=== PATIENT | male | born 1955 | race Caucasian/White ===

== ENCOUNTER 2017-05-10 09:50 | Emergency (ER) | payer OTHER ==
[~2017-05-10] VITALS: Ht 165.1 cm; Wt 95.3 kg
[2017-05-10 09:55] VITALS: TEMP 37; Ht 165.1 cm; Wt 95.3 kg
[2017-05-10 10:19] VITALS: O2SAT 96
--- NOTE | 2017-05-10 10:43 | EMERGENCY ROOM VISIT NOTE ---
History Report prepared by Leatha: Ynes Pickard Under the Supervision of: Dr. Duane Sheikh M.D. First contact with patient: 10:03 Chief Complaint: CARDIAC ASSESSMENT Stated Complaint: BLOOD PRESSURE, ARM NUMBNESS History of Present Illness The patient is a 62 year old male who presents to the Emergency Room with complaints of persistent left arm numbness starting yesterday afternoon. 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 He was working yesterday when he starting having pins and needles in his left arm. He has had some issues with his left shoulder and left arm numbness in the past. The patient is concerned because his blood pressure has also been high over the past couple of days. He has an appointment with his PCP tomorrow for his blood pressure. He is feeling well otherwise. He denies any neck pain, fever, chills, cough, congestion, nausea, vomiting, or chest pain. He has tried taking ibuprofen today. He denies any history of kidney disease. Source of History: patient Onset: yesterday afternoon Position: arm (left) Quality: numbness Timing: other (persistent) Associated Symptoms: No fevers, No chills, No cough, No neck pain, No chest pain, No nausea, No vomiting Note: Pt reports high blood pressure. Review of Systems See HPI for pertinent positives and negatives. A total of ten systems were reviewed and were otherwise negative. Past Medical & Surgical No history of kidney disease. Family History No pertinent family history stated. Social History Smoking Status: Current Every Day Smoker Occupation Status: employed Current/Historical Medications No Active Prescriptions or Reported Meds Allergies Coded Allergies: Sulfa Antibiotics (Unverified Allergy, Severe, unkown from childhood, 05/10) Physical Exam Vital Signs Date Time Temp Pulse Resp B/P (MAP) Pulse Ox O2 Delivery O2 Flow Rate FiO2 05/10/17 13:25 66 16 142/105 97 05/10/17 12:15 68 16 97 Room Air 150/100 05/10/17 11:01 65 20 151/98 94 Room Air 05/10/17 10:21 96 Room Air 05/10/17 10:19 71 18 151/98 95 Room Air 05/10/17 10:19 96 Room Air 05/10/17 10:10 73 05/10/17 09:55 37.0 81 17 184/103 97 Room Air Physical Exam GENERAL: Awake, alert, well-appearing, in no distress HENT: Normocephalic, atraumatic. Oropharynx unremarkable. EYES: Normal conjunctiva. Sclera non-icteric. NECK: Supple. No nuchal rigidity. FROM. No JVD. RESPIRATORY: Clear to auscultation. CARDIAC: Regular rate, normal rhythm. Extremities warm and well perfused. Pulses equal. ABDOMEN: Soft, non-distended. No tenderness to palpation. No rebound or guarding. No masses. RECTAL: Deferred. MUSCULOSKELETAL: Chest examination reveals no tenderness. The back is symmetrical on inspection without obvious abnormality. There is no CVA tenderness to palpation. No joint edema. Mild tenderness along the left trapezius. LOWER EXTREMITIES: Calves are equal size bilaterally and non-tender. No edema. No discoloration. NEURO: Normal sensorium. No sensory or motor deficits noted. SKIN: No rash or jaundice noted. Medical Decision & Procedures ER Provider Diagnostic Interpretation: Radiology results as stated below per my review and radiologist interpretation: CHEST ONE VIEW PORTABLE CLINICAL HISTORY: Chest pain. Arm numbness. COMPARISON STUDY: No previous studies for comparison. FINDINGS: Patient is mildly rotated. Lung volumes are normal. No pneumothorax or pleural effusion is noted. There is no evidence for pulmonary edema. Cardiac size is at the upper limits of normal. Mediastinal contours are unremarkable. IMPRESSION: No acute cardiopulmonary findings. Electronically signed by: Jesús Martínez M.D. 05/10/2017 10:51 AM Dictated Date/Time: 05/10/2017 10:51 AM Laboratory Results 05/10/17 10:15 Red Blood Count 4.97, Mean Corpuscular Volume 90.5, Mean Corpuscular Hemoglobin 31.0, Mean Corpuscular Hemoglobin Concent 34.2, Mean Platelet Volume 10.5, Neutrophils (%) (Auto) 62.4, Lymphocytes (%) (Auto) 27.3, Monocytes (%) (Auto) 7.4, Eosinophils (%) (Auto) 2.0, Basophils (%) (Auto) 0.5, Neutrophils # (Auto) 5.10, Lymphocytes # (Auto) 2.23, Monocytes # (Auto) 0.60, Eosinophils # (Auto) 0.16, Basophils # (Auto) 0.04 05/10/17 10:15 Test 05/10/17 10:15 White Blood Count 8.16 K/uL (4.8-10.8) Red Blood Count 4.97 M/uL (4.7-6.1) Hemoglobin 15.4 g/dL (14.0-18.0) Hematocrit 45.0 % (42-52) Mean Corpuscular Volume 90.5 fL (80-100) Mean Corpuscular Hemoglobin 31.0 pg (25-34) Mean Corpuscular Hemoglobin Concent 34.2 g/dl (32-36) Platelet Count 257 K/uL (130-400) Mean Platelet Volume 10.5 fL (7.4-10.4) Neutrophils (%) (Auto) 62.4 % Lymphocytes (%) (Auto) 27.3 % Monocytes (%) (Auto) 7.4 % Eosinophils (%) (Auto) 2.0 % Basophils (%) (Auto) 0.5 % Neutrophils # (Auto) 5.10 K/uL (1.4-6.5) Lymphocytes # (Auto) 2.23 K/uL (1.2-3.4) Monocytes # (Auto) 0.60 K/uL (0.11-0.59) Eosinophils # (Auto) 0.16 K/uL (0-0.5) Basophils # (Auto) 0.04 K/uL (0-0.2) RDW Standard Deviation 45.3 fL (36.4-46.3) RDW Coefficient of Variation 13.7 % (11.5-14.5) Immature Granulocyte % (Auto) 0.4 % Immature Granulocyte # (Auto) 0.03 K/uL (0.00-0.02) Anion Gap 7.0 mmol/L (3-11) Est Creatinine Clear Calc Drug Dose 63.6 ml/min Estimated GFR () 68.1 Estimated GFR (Non- 58.8 BUN/Creatinine Ratio 18.9 (10-20) Calcium Level 9.3 mg/dl (8.5-10.1) Magnesium Level 2.3 mg/dl (1.8-2.4) Total Bilirubin 0.4 mg/dl (0.2-1) Direct Bilirubin < 0.1 mg/dl (0-0.2) Aspartate Amino Transf (AST/SGOT) 17 U/L (15-37) Alanine Aminotransferase (ALT/SGPT) 53 U/L (12-78) Alkaline Phosphatase 72 U/L (45-117) Troponin I < 0.015 ng/ml (0-0.045) Total Protein 7.4 gm/dl (6.4-8.2) Albumin 3.9 gm/dl (3.4-5.0) Lipase 147 U/L (73-393) Laboratory results reviewed by me Medications Administered Medications (Trade) Dose Ordered Sig/Benita Route Start Time Stop Time Status Last Admin Dose Admin Ibuprofen (Motrin Tab) 800 mg NOW STAT PO 05/10/17 12:32 05/10/17 12:33 DC 05/10/17 12:46 800 MG ECG Per My Interpretation Indication: back/shoulder pain Rate (beats per minute): 76 Rhythm: sinus rhythm Findings: RBBB (incomplete), no acute ischemic change, other (normal axis) Comparison ECG Date: no prior available ED Course 1004: The patient was evaluated in room C9. A complete history and physical exam was performed. 1240: I reevaluated the patient. Discussed results and discharge instructions: He verbalized understanding and agreement. The patient is ready for discharge. Medical Decision I reviewed the patient's past medical history, medications, and the nursing notes as described above. Differential diagnosis: Etiologies such as cardiac ischemia, aortic dissection, pulmonary embolism, pneumonia, pneumothorax, musculoskeletal, infections, pericarditis, myocarditis , esophageal rupture, gastrointestinal, as well as others were entertained. 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 Of note the patient is receiving appointment to follow-up on question of new onset high blood pressure and so was concerned and why comes to the ED today. Rather the patient is well-appearing, no acute distress, afebrile stable vital signs. On exam the patient has mild tenderness along the left trapezius muscle consistent with likely nerve impingement causing the patient's radiculopathy. EKG negative for acute ischemia. Troponin negative in the setting of greater than 12 hours of symptoms. Thus unlikely to be cardiac related. Chest x-ray negative. Labs otherwise unremarkable. Patient has follow-up appointment with his doctor tomorrow and will discuss management of his elevated blood pressure. Findings and plan for follow-up reviewed with patient. Patient agreeable and d/c'd per discharge instructions. Medication Reconcilliation Current Medication List: was personally reviewed by me Blood Pressure Screening Patient's blood pressure: Elevated blood pressure Blood pressure disposition: Referred to PCP Impression Primary Impression: Shoulder pain, left Scribe Attestation The scribe's documentation has been prepared under my direction and personally reviewed by me in its entirety. I confirm that the note above accurately reflects all work, treatment, procedures, and medical decision making performed by me. Departure Information Dispostion Home / Self-Care Prescriptions No Active Prescriptions or Reported Meds Referrals No Doctor, Assigned (PCP) Patient Instructions My [facility] Additional Instructions Please follow up with your primary care physician in the next 1-3 days for re- evaluation and to discuss your blood pressure management. Your shoulder and arm symptoms are most likely due to a muscle strain/nerve impingement. Otherwise, your exam, EKG, chest xray, and lab results did not show signs of an emergent condition at this time. Acetaminophen or ibuprofen for pain and fevers as needed. Heating pad at 20 minute intervals throughout the day for additional muscle relaxation. Drink plenty of fluids to ensure hydration. Return to the emergency department for worsening symptoms as described in the accompanying instructions.
[2017-05-10 10:51] LABS: BASO % 0.5 %; BASO ABS # 0.04 K/uL (0-0.2); EOS ABS # 0.16 K/uL (0-0.5); HEMOGLOBIN 15.4 g/dL (14.0-18.0); IG# 0.03 K/uL (0.00-0.02); LYMPH % 27.3 %; LYMPH ABS # 2.23 K/uL (1.2-3.4); MEAN CELL VOLUME 90.5 fL (80-100); MEAN CORPUSCULAR HGB CONC 34.2 g/dl (32-36); MEAN PLATELET VOLUME 10.5 fL (7.4-10.4); MONO % 7.4 %; NEUT % 62.4 %; PLATELET COUNT 257 K/uL (130-400); RED CELL DISTRIBUTION WIDTH CV 13.7 % (11.5-14.5); RED CELL DISTRIBUTION WIDTH SD 45.3 fL (36.4-46.3); WHITE BLOOD COUNT 8.16 K/uL (4.8-10.8)
--- NOTE | 2017-05-10 10:53 | DIAGNOSTIC IMAGING REPORT ---
CHEST ONE VIEW PORTABLE CLINICAL HISTORY: Chest pain. Arm numbness. COMPARISON STUDY: No previous studies for comparison. FINDINGS: Patient is mildly rotated. Lung volumes are normal. No pneumothorax or pleural effusion is noted. There is no evidence for pulmonary edema. Cardiac size is at the upper limits of normal. Mediastinal contours are unremarkable. IMPRESSION: No acute cardiopulmonary findings. Electronically signed by: Jesús Martínez M.D. 05/10/2017 10:51 AM Dictated Date/Time: 05/10/2017 10:51 AM
[2017-05-10 10:59] LABS: ALBUMIN 3.9 gm/dl (3.4-5.0); ALT/SGPT 53 U/L (12-78); BLOOD UREA NITROGEN 25 mg/dl (7-18); CALCIUM 9.3 mg/dl (8.5-10.1); CARBON DIOXIDE 25 mmol/L (21-32); CREATININE 1.31 mg/dl (0.60-1.40); GLUCOSE 93 mg/dl (70-99); LIPASE 147 U/L (73-393); POTASSIUM 4.1 mmol/L (3.5-5.1); SODIUM 137 mmol/L (136-145)
[2017-05-10 11:04] LABS: ALKALINE PHOSPHATASE 72 U/L (45-117); AST/SGOT 17 U/L (15-37); TOTAL PROTEIN 7.4 gm/dl (6.4-8.2)
[2017-05-10] MEDS ORDERED: IBUPROFEN 800 MG TAB PO STA (12:32)
[2017-05-10 13:25] VITALS: BP 142/105; PULSE 66; O2SAT 97
== END 2017-05-10 13:05 | disposition home or self-care (01) ==
LOC: C.EDB 09:53 → C.EDC 13:05
DX: M25.512 Pain in left shoulder (principal); R03.0 Elevated blood-pressure reading, without diagnosis of hypertension; F17.200 Nicotine dependence, unspecified, uncomplicated

== ENCOUNTER 2018-04-29 10:08 | Inpatient (IN) ==
[2018-04-29 11:40] LABS: Basophils # (auto) 0.03 K/uL (0-0.2); Basophils % (auto) 0.4 %; Eosinophils # (auto) 0.15 K/uL (0-0.5); Eosinophils % (auto) 1.8 %; Hematocrit (blood only) 43.4 % (42-52); Hemoglobin 14.9 g/dL (14.0-18.0); Immature Granulocytes # (auto) 0.03 K/uL (0.00-0.02); Immature Granulocytes % (auto) 0.4 %; Lymphocytes # (auto) 2.11 K/uL (1.2-3.4); Lymphocytes % (auto) 25.6 %; Mean Corpuscular Hgb Conc 34.3 g/dL (32-36); Mean Corpuscular Volume 90.8 fL (80-100); Mean Platelet Volume 10.6 fL (7.4-10.4); Monocytes # (auto) 0.54 K/uL (0.11-0.59); Monocytes % (auto) 6.5 %; Neutrophils # (auto) 5.39 K/uL (1.4-6.5); Neutrophils % (auto) 65.3 %; Platelet Count 229 K/uL (130-400); RDW Coefficient of Variation 13.2 % (11.5-14.5); Red Blood Count 4.78 M/uL (4.7-6.1); White Blood Count 8.25 K/uL (4.8-10.8)
--- NOTE | 2018-04-29 11:53 | CT Scan Report ---
CT SCAN OF THE BRAIN WITHOUT IV CONTRAST CLINICAL HISTORY: Left upper extremity and facial numbness. COMPARISON STUDY: No priors. TECHNIQUE: Unenhanced axial CT scan of the brain is performed from the vertex to the skull base. A d ose lowering technique was utilized adhering to the principles of ALARA. CT DOSE: 690.05 mGycm FINDINGS: Brain parenchyma: There is a small focus of right frontal encephalomalacia suggests subacute to remot e ischemia. There is no hemorrhage or mass effect. No extra-axial fluid collection is seen. Ventricles, sulci, cisterns: Normal in configuration. Intracranial vasculature: There is atherosclerotic calcification of the cavernous carotid arteries. Calvarium: Unremarkable. Sinuses and mastoids: The visualized paranasal sinuses are clear. The mastoid air cells are well pneu matized. Orbits: The bony orbits are grossly intact. IMPRESSION: 1. There is a small focus of subacute to chronic ischemia suggested in the right frontal lobe. Consid er correlation with MRI for further assessment. 2. There is no hemorrhage or mass effect. Electronically signed by: Arjun Vickers M.D. 04/29/2018 11:52 AM
[2018-04-29 11:57] LABS: Alanine Aminotransferase 39 U/L (12-78); Aspartate Aminotransferase 17 U/L (15-37); BUN Creatinine Ratio 26.6 (10-20); Blood Urea Nitrogen 30 mg/dl (7-18); Calcium 9.3 mg/dl (8.5-10.1); Carbon Dioxide 25 mmol/L (21-32); Chloride 107 mmol/L (98-107); Creatinine Clr Calc Pharmacy 73.4 ml/min; Est GFR (African American) 81.7; Est GFR (Non-African American) 70.5; Glucose 107 mg/dl (70-99); Potassium 4.1 mmol/L (3.5-5.1); Sodium 139 mmol/L (136-145)
[2018-04-29 12:02] LABS: Albumin Globulin Ratio 1.2 (0.9-2); Alkaline Phosphatase 66 U/L (45-117); Bilirubin,Total 0.2 mg/dl (0.2-1); Globulin 3.4 gm/dl (2.5-4.0); Total Protein 7.4 gm/dl (6.4-8.2); Troponin I < 0.015 ng/ml (0-0.045)
[2018-04-29 12:23] LABS: Prothrombin Time 10.1 Seconds (9.0-12.0)
[2018-04-29] MEDS ORDERED: MECLIZINE HCL 25 MG TAB PO PRN (14:45)
[2018-04-29] MEDS ORDERED: PHARMACIST DISCHARGE MED REC CONSULT PRN (14:45)
[2018-04-29] MEDS ORDERED: cloNIDine HCl 0.1 MG TAB PO PRN (14:45)
[2018-04-29] MEDS ORDERED: ONDANSETRON INJ 2 MG/ML 2 ML VIAL IV PRN (14:45)
[2018-04-29] MEDS ORDERED: ACETAMINOPHEN 325 MG TAB PO PRN (14:45)
--- NOTE | 2018-04-29 16:16 | Emergency Department Note ---
Entered by Rekha Bell acting as a scribe for Kenny Du MD History of Present Illness General Chief complaint: Stroke/CVA Symptoms Stated complaint: LEFT SIDED NUMBNESS,FACE FEELS DROOPY Source: patient Mode of arrival: ambulatory Limitations: no limitations History of Present Illness Onset (ago): hour(s) (0900) Location: head (stroke symptoms), face (left) and upper extremity (left) Pain Consistency: + other (episode) Quality: + other (tingling) Associated symptoms: + other (The patient complains of loss of control of his left arm, left sided facial tingling, and lightheadedness. The patient denies difficulty speaking. ); no confusion The patient is a 63 year old male with a history of a pinched nerve who presents to the ED with complaints of an episode of stroke symptoms that onset at 0900 and lasted for 15 minutes. He notes that the symptom onset when he was shoveling snow. The patient complains of loss of control of his left arm, left sided facial tingling, and lightheadedness. He states that he then took his blood pressure and it was 156/99. The patient denies confusion and difficulty speaking. He had no numbness or weakness in his arms or legs. He stated the left arm was not necessarily weak but uncoordinated and would not do the things he was trying to do with it. He is not left hand dominant. He had no trouble with his gait or swallowing. His symptoms lasted about 15 minutes and now he has no symptoms. He had a similar episode about a year ago. He was seen by another physician at that time. He had an MRI of his brain and neck and was told that he did not have a stroke and had his problems in his neck. He does state that he did not have any facial symptoms at that time. He states that he takes aspirin and took one prior to arrival. Home Medications Home Medications Medication Instructions Recorded Confirmed Type amlodipine 5 mg PO QPM 03/14/18 04/29/18 History aspirin [Aspirin Low Dose] 81 mg PO QAM 03/14/18 04/29/18 History hydrochlorothiazide 12.5 mg PO QAM 03/21/18 04/29/18 History meclizine 25 mg PO DAILY PRN 04/29/18 04/29/18 History Allergies Allergy/AdvReac Type Severity Reaction Status Date / Time Sulfa (Sulfonamide Allergy Severe unkown Verified 03/21/18 22:20 Antibiotics) from childhood Past Med/Surg History Medical History Pneumonia (Resolved) Hypertension (Inactive) Pinched nerve Family History Other Family history non-contributory Social History Preferred Language: [place] Communication Ability: Effective Beliefs That Will Affect Care: None Current Living Situation: Alone Other Information That Helps Us Care for You: No Feels Safe at Home: Yes Safety Concerns: Feels Safe At This Time Smoking Status: Former smoker Hx Alcohol Use: Yes Hx Substance Use: No Review of Systems See HPI for pertinent positives & negatives. and A total of 10 systems reviewed and were otherwise negative Physical Exam Vital Signs Vital Signs - 24 hr 04/29/18 10:11 04/29/18 11:39 04/29/18 13:20 Temperature 36.5 C Temperature Source Oral Sepsis Recent Fever Within 48 Hours No Sepsis Action Taken by Nursing No Action Required Pulse Rate 88 Pulse Rate [Apical] 72 70 Pulse Rhythm [Apical] Pulse Strength [Apical] Respiratory Rate 18 18 18 Respiratory Effort / Characteristics Non-Labored Non-Labored Non-Labored Respiratory Depth Normal Normal Normal Respiratory Pattern Regular Regular Regular Blood Pressure 172/105 H Blood Pressure [Right Arm] 150/94 H 129/92 Blood Pressure Mean 127 Blood Pressure Mean [Right Arm] 112 104 Blood Pressure Position Sitting Blood Pressure Position [Right Arm] Sitting Pulse Oximetry 96 97 96 Oxygen Delivery Method Room Air Room Air Room Air Oxygen Flow Rate 04/29/18 13:49 04/29/18 14:51 04/29/18 15:12 Temperature 36.8 C Temperature Source Oral Sepsis Recent Fever Within 48 Hours Sepsis Action Taken by Nursing Pulse Rate 68 Pulse Rate [Apical] 69 Pulse Rhythm [Apical] Regular Pulse Strength [Apical] Normal Respiratory Rate 16 Respiratory Effort / Characteristics Non-Labored Non-Labored Respiratory Depth Normal Normal Respiratory Pattern Regular Regular Regular Blood Pressure Blood Pressure [Right Arm] 140/88 Blood Pressure Mean Blood Pressure Mean [Right Arm] 105 Blood Pressure Position Blood Pressure Position [Right Arm] Lying Pulse Oximetry Oxygen Delivery Method Room Air Room Air Room Air Oxygen Flow Rate 98 Constitutional: Vital signs reviewed. Eyes: Pupils are equal round reactive to light. Conjunctiva are noninjected. ENT: Pharynx is clear without erythema or exudate. Mucous membranes are moist. Neck supple without meningeal signs. Respiratory: Clear to auscultation bilaterally. Breath sounds are equal bilaterally. Cardiovascular: Regular rate and rhythm. No rubs or gallops. GI: Soft, nondistended and nontender. Bowel sounds are present. Musculoskeletal: No peripheral edema. No lower extremity tenderness. Integumentary: No cyanosis. Neurological: The patient is awake and alert. Cranial nerves II-XII are intact. Motor is 5 out of 5 all extremities. Sensation is intact to light touch all extremities. Normal speech. No pronator drift. No limb ataxia. Psychiatric: Normal affect. Course 1055: Past medical records reviewed. The patient was evaluated in room C7, and a complete history and physical examination were performed. 1224: I updated the patient on his results. Upon reevaluation, the patient is resting comfortably. He states that he has no new symptoms and that he took an aspirin today. 1225: [facility] will evaluate the patient for further management. 1245: I reviewed the patient's case with Dr[facility] Shakira Donato [facility]. He will evaluate the patient for further management. Consultations Consultation #1: 1225: [facility] will evaluate the patient for further management. Time: 12:25 Consultation #2: 1245: I reviewed the patient's case with Dr. Shakira Donato [facility]. He will evaluate the patient for further management. Time: 12:45 Administered Medications Medical Decision Making Differential Diagnosis Differential Diagnoses Include: TIA, CVA, ICH, intracranial mass, cervical disc disease. Medical Records Attestation: I reviewed the patient's medical records. Home Medications Current Medication List: was personally reviewed by me Laboratory Data Attestation: I reviewed the patient's lab results. Result diagrams: 04/29/18 11:28 04/29/18 11:28 Lab Results 04/29/18 04/29/18 04/29/18 Range/Units 11:21 11:28 11:28 WBC 8.25 (4.8-10.8) K/uL RBC 4.78 (4.7-6.1) M/uL Hgb 14.9 (14.0-18.0) g/dL Hct 43.4 (42-52) % MCV 90.8 (80-100) fL MCH 31.2 (25-34) pg MCHC 34.3 (32-36) g/dL RDW Std Deviation 44.0 (36.4-46.3) fL RDW Coeff of Sherif 13.2 (11.5-14.5) % Plt Count 229 (130-400) K/uL MPV 10.6 H (7.4-10.4) fL Immature Gran % (Auto) 0.4 % Neut % (Auto) 65.3 % Lymph % (Auto) 25.6 % [place] % (Auto) 6.5 % Eos % (Auto) 1.8 % Baso % (Auto) 0.4 % Immature Gran # (Auto) 0.03 H (0.00-0.02) K/uL Neut # (Auto) 5.39 (1.4-6.5) K/uL Lymph # (Auto) 2.11 (1.2-3.4) K/uL [place] # (Auto) 0.54 (0.11-0.59) K/uL Eos # (Auto) 0.15 (0-0.5) K/uL Baso # (Auto) 0.03 (0-0.2) K/uL PT Cancelled INR Cancelled APTT Cancelled PTT Ratio Cancelled Sodium (136-145) mmol/L Potassium (3.5-5.1) mmol/L Chloride (98-107) mmol/L Carbon Dioxide (21-32) mmol/L Anion Gap (3-11) BUN (7-18) mg/dl Creatinine (0.6-1.4) mg/dl Est Cr Clr Drug Dosing ml/min Est GFR ( Amer) Est GFR (Non-Af Amer) BUN/Creatinine Ratio (10-20) Glucose (70-99) mg/dl POC Glucose 112 H (70-99) Calcium (8.5-10.1) mg/dl Magnesium (1.8-2.4) mg/dl Total Bilirubin (0.2-1) mg/dl AST (15-37) U/L ALT (12-78) U/L Alkaline Phosphatase (45-117) U/L Troponin I (0-0.045) ng/ml Total Protein (6.4-8.2) gm/dl Albumin (3.4-5.0) gm/dl Globulin (2.5-4.0) gm/dl Albumin/Globulin Ratio (0.9-2) 04/29/18 04/29/18 Range/Units 11:28 11:58 WBC (4.8-10.8) K/uL RBC (4.7-6.1) M/uL Hgb (14.0-18.0) g/dL Hct (42-52) % MCV (80-100) fL MCH (25-34) pg MCHC (32-36) g/dL RDW Std Deviation (36.4-46.3) fL RDW Coeff of Sherif (11.5-14.5) % Plt Count (130-400) K/uL MPV (7.4-10.4) fL Immature Gran % (Auto) % Neut % (Auto) % Lymph % (Auto) % [place] % (Auto) % Eos % (Auto) % Baso % (Auto) % Immature Gran # (Auto) (0.00-0.02) K/uL Neut # (Auto) (1.4-6.5) K/uL Lymph # (Auto) (1.2-3.4) K/uL [place] # (Auto) (0.11-0.59) K/uL Eos # (Auto) (0-0.5) K/uL Baso # (Auto) (0-0.2) K/uL PT 10.1 INR 1.0 APTT PTT Ratio Sodium 139 (136-145) mmol/L Potassium 4.1 (3.5-5.1) mmol/L Chloride 107 (98-107) mmol/L Carbon Dioxide 25 (21-32) mmol/L Anion Gap 8.0 (3-11) BUN 30 H (7-18) mg/dl Creatinine 1.12 (0.6-1.4) mg/dl Est Cr Clr Drug Dosing 73.4 ml/min Est GFR ( Amer) 81.7 Est GFR (Non-Af Amer) 70.5 BUN/Creatinine Ratio 26.6 H (10-20) Glucose 107 H (70-99) mg/dl POC Glucose (70-99) Calcium 9.3 (8.5-10.1) mg/dl Magnesium 2.0 (1.8-2.4) mg/dl Total Bilirubin 0.2 (0.2-1) mg/dl AST 17 (15-37) U/L ALT 39 (12-78) U/L Alkaline Phosphatase 66 (45-117) U/L Troponin I < 0.015 (0-0.045) ng/ml Total Protein 7.4 (6.4-8.2) gm/dl Albumin 4.0 (3.4-5.0) gm/dl Globulin 3.4 (2.5-4.0) gm/dl Albumin/Globulin Ratio 1.2 (0.9-2) Imaging Data Radiologist's Impression: Radiology results as stated below per my review and the radiologist's interpretation: CT SCAN OF THE BRAIN WITHOUT IV CONTRAST CLINICAL HISTORY: Left upper extremity and facial numbness. COMPARISON STUDY: No priors. TECHNIQUE: Unenhanced axial CT scan of the brain is performed from the vertex to the skull base. A dose lowering technique was utilized adhering to the principles of ALARA. CT DOSE: 690.05 mGycm FINDINGS: Brain parenchyma: There is a small focus of right frontal encephalomalacia suggests subacute to remote ischemia. There is no hemorrhage or mass effect. No extra-axial fluid collection is seen. Ventricles, sulci, cisterns: Normal in configuration. Intracranial vasculature: There is atherosclerotic calcification of the cavernous carotid arteries. Calvarium: Unremarkable. Sinuses and mastoids: The visualized paranasal sinuses are clear. The mastoid air cells are well pneumatized. Orbits: The bony orbits are grossly intact. IMPRESSION: 1. There is a small focus of subacute to chronic ischemia suggested in the right frontal lobe. Consider correlation with MRI for further assessment. 2. There is no hemorrhage or mass effect. Electronically signed by: Arjun Vickers M.D. 04/29/2018 11:52 AM Dictated: 04/29/18 1147 Transcribed: 04/29/18 1147 ECG Data Attestation: I personally reviewed and interpreted this ECG as follows: Indication: other (neuro symptoms) Rate (beats per minute): 70 Rhythm: normal sinus Findings: + RBBB (imcomplete); no PVC and no ST elevation Blood Pressure Blood Pressure Findings: Elevated blood pressure Blood Pressure Disposition: Referred to patients primary care provider MDM Narrative I did perform a limited focused review of portions of the patient's old chart on the electronic medical record. The patient was here on 03/21/2018 for hypertension. I did evaluate the patient as noted above. The patient is presenting with TIA symptoms. He had numbness and tingling to his face and felt like it was a week. He also noted significant incoordination with the left arm. He is not sure if it was necessarily weak but more an issue of coordination. His symptoms are now completely resolved. He has no neurologic deficit at this time. IV access was established. The patient was placed on a continuous gambling monitor. I did order and personally review the patient's 12-lead EKG as described above. His t welve-lead EKG is unremarkable. I did order and review the patient's blood work as noted in the electronic medical record. Lab work is unremarkable. I did order a CT of the head. I did review the images myself as well as the radiology report as described above. He has what appears to be subacute or chronic ischemia to the right frontal lobe. I did reassess the patient. I did discuss the test results with him. He will need to be hospitalized for further evaluation and MRI of the brain. He currently has no symptoms. I did discuss case with the hospitalist and case aide. Impression & Plan Numbness and tingling of right side of face, LUE weakness, LUE numbness Discharge Plan Visit Data *Final* Discharge Date/Time: 04/29/18 13:48 Chief Complaint: Stroke/CVA Symptoms Stated Complaint: LEFT SIDED NUMBNESS,FACE FEELS DROOPY ED Provider: Kenny Du Discharge Problem: Numbness and tingling of right side of face, LUE weakness, LUE numbness Patient Disposition: Admitted As Inpatient Discharge Instructions Interventions: ED Discharge Assessment Last Done: 04/29/18 13:48 The scribe's documentation has been prepared under my direction and personally reviewed by me in its entirety. I confirm that the note above accurately reflects all work, treatment, procedures, and medical decision making performed by me.
--- NOTE | 2018-04-29 16:19 | Neurology Consultation ---
Date of Consultation April 29, 2018 Assessment & Plan (1) Numbness and tingling of right side of face: 1. MRI with and without brain - evaluate stroke 2. CTA head and neck - r/o vascular causes of stroke 3. TTE- with bubble study r/o ASD 4. started aspirin 81 mg and plavix 75 mg for now 5. optimize HTN, HLD LDL <70 6. PT/OT speech -for any discharge needs- does not appear to be any needs 7. further recommendations once imaging is completed Correction, L face and arm with some incoordination. Pt has also recently hand brief episodes of blurred vis which are better with turning his head. Several weeks ago had an episode with genl weakness and n, v. Exam is normal. Suspect small vessel cerebrovasc disease. REc CTA head, neck, cardiac marquez, dual antiplt tx, optimization of lipid profile. SHAWNEE Gil MD (2) LUE numbness: same as above Supervising Physician Co-Signing Physician Notes I have seen and discussed above patient with Dr Mervat Gil, neurology History of Present Illness Reason for Consultation: CVA Requesting Physician: Emory Rosenberg MD Attending Physician: Emory Rosenberg MD History of Present Illness Kalia is a 63 year old right handed male with a PMH uncontrolled HTN, pinched nerve in neck. He presented to ED after a 15 minute episode of facial numbness and dysmetric use of left arm and hand . He notes that the symptom onset when he was shoveling snow. He lost control of his left arm, left sided facial tingling, and lightheadedness. He states that he then took his blood pressure and it was 156/99. There was no weakness in his arms or legs he just couldn't get it to move the way he wanted it to move He had a similar episode about a year ago he had an MRI of his brain and neck and was told that he did not have a stroke and had cervical stenosis. He quit smoking about 1 month ago was a ppd smoker, drinks 2 beers daily, and about a pot of coffee per day, no other drugs. denies CP, SOB, abdominal pain, currently one sided weakness, numbness tingling, N, V, swallow issues. Allergies Allergy/AdvReac Type Severity Reaction Status Date / Time Sulfa (Sulfonamide Allergy Severe unkown Verified 03/21/18 22:20 Antibiotics) from childhood Home Medications Home Medications Medication Instructions Recorded Confirmed Type amlodipine 5 mg PO QPM 03/14/18 04/29/18 History aspirin [Aspirin Low Dose] 81 mg PO QAM 03/14/18 04/29/18 History hydrochlorothiazide 12.5 mg PO QAM 03/21/18 04/29/18 History meclizine 25 mg PO DAILY PRN 04/29/18 04/29/18 History Patient History Medical History Pneumonia (Resolved) Hypertension (Inactive) Pinched nerve Family History Other Family history non-contributory Social History Preferred Language: Georgian Communication Ability: Effective Beliefs That Will Affect Care: None Current Living Situation: Alone Other Information That Helps Us Care for You: No Feels Safe at Home: Yes Safety Concerns: Feels Safe At This Time Smoking Status: Former smoker Hx Alcohol Use: Yes Hx Substance Use: No Physical Exam Vital Signs (Past 24 Hours): Last Vital Signs Temp 36.8 C 04/29/18 15:12 Pulse 69 04/29/18 15:12 Resp 16 04/29/18 15:12 BP 140/88 04/29/18 15:12 Pulse Ox 96 04/29/18 13:20 Physical Exam: Constitutional: appearance over nourished, healthy Ears, Nose, Mouth and Throat: mucous membranes moist, no injection and skin normal, eyes normal Cardiovascular: normal S-1 and S-2 and regular rate and rhythm Respiratory: course breath sounds Musculoskeletal: no peripheral edema Skin: no stigmata of neurocutaneous disease noted and normal and intact Eyes: extraocular muscles intact (EOMI) and pupils equal, round and reactive to light (PERRL) NEUROLOGIC EXAMINATION: Mental status: Alert and interactive Oriented to full date and location Oriented to person Speech fluent with no evidence of aphasia Cranial Nerves smile eye brow raise symmetric Reflexes: Deep tendon reflexes were symmetrical and graded 2/5. Plantar responses were flexor. Sensory: decreased sensation to light touch left hand to wrist Coordination: finger to nose no bi pass Gait/Stance: Posture normal. Gait normal: with steady with steps, base, turning, heel and toe walking and tandem gait. Motor: Negative for pronator drift of out stretched arms with eyes closed. 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 Consider correlation with MRI for further assessment. There is no hemorrhage or mass effect.
[2018-04-29] MEDS: CLOPIDOGREL BISULFATE 75 MG TAB PO SCH (16:37)
[2018-04-29] MEDS: ATORVASTATIN 40 MG TAB PO SCH (16:37)
[2018-04-29] MEDS: SODIUM CHLORIDE 0.9% 1000ML 1,000 ML IV SCH (17:49)
--- NOTE | 2018-04-29 19:26 | XRay Report ---
XR orbits for MRI CLINICAL HISTORY: 63 years-old Male presenting with clearance for MRI. TECHNIQUE: 3 views of the orbits were obtained. COMPARISON: Correlation made to CT head performed earlier today. FINDINGS: No radiopaque intraorbital foreign body. Bony orbits grossly intact. Paranasal sinuses grossly clear. Visualized portion of the calvarium intact. IMPRESSION: No intraorbital metallic foreign body to preclude MRI exam. Electronically signed by: Edwar Beckford M.D. 04/29/2018 7:25 PM
[2018-04-29] MEDS ORDERED: GADOBUTROL 65ML VIAL IV PRN (21:48)
--- NOTE | 2018-04-29 21:56 | Magnetic Resonance Report ---
MR brain wo/w con CLINICAL HISTORY: 63 years-old Male presenting with cva, left arm weakness and tingling in the face f or 15 minutes this morning while shoveling snow, abnormality seen on CT, MRI for further characteriza tion. TECHNIQUE: Multisequence, multiplanar MR imaging of the brain was performed before and after the admi nistration of intravenous contrast. IV contrast: 9 mL of Gadavist. COMPARISON: Noncontrast CT head performed earlier today. FINDINGS: Localizer images: Unremarkable. Ventricles and sulci normal in size. Few scattered punctate foci of T2/FLAIR hyperintensity in the pe riventricular and subcortical white matter either age-related change or chronic small vessel ischemic change. Limited focus of encephalomalacia in the post central gyrus of the right parietal lobe. No a ssociated diffusion abnormality. This is consistent with an old Limited cortical infarct. No abnormal parenchymal enhancement. No mass effect or midline shift. No restricted diffusion to suggest acute ischemia. No hemorrhage. No extra-axial fluid collection. T2 skull base flow voids preserved. Bone marrow signal intensity within the calvarium within normal l imits. IMPRESSION: 1. Chronic appearing limited cortical infarct involving the post central gyrus of the right parietal lobe. It is uncertain if this relates to the patient's symptomatology. No acute infarct or convincin g evidence of acute intracranial pathology. No abnormal parenchymal enhancement. Electronically signed by: Edwar Beckford M.D. 04/29/2018 9:54 PM
--- NOTE | 2018-04-29 21:59 | Magnetic Resonance Report ---
MR angio head wo con CLINICAL HISTORY: 63 years-old Male presenting with left arm weakness and tingling, concern for strok e. TECHNIQUE: MR angiography of the head was performed without the use of intravenous contrast using 3-D [id number] technique. 3-D volumetric and/or maximum intensity projection (MIP) images were subse quently reconstructed for review. IV contrast: None. COMPARISON: Noncontrast CT head performed earlier the same day and MR brain from today. FINDINGS: Localizer images: Unremarkable. Anterior circulation: Intracranial portions of the internal carotid arteries patent to the level of t he termini. Anterior cerebral arteries patent. Middle cerebral arteries patent. Anterior communicatin g artery patent. Posterior circulation: Codominant vertebral arteries. Intradural portions of the vertebral arteries p atent. Posterior inferior cerebellar arteries patent. Basilar artery patent. Anterior inferior cerebe llar arteries poorly visualized. Superior cerebellar arteries patent. Posterior cerebral arteries pat ent.Right posterior communicating artery patent. Left P-comm hypoplastic or aplastic. IMPRESSION: 1. No significant stenosis, aneurysm, or focal vessel occlusion. Electronically signed by: Edwar Beckford M.D. 04/29/2018 9:58 PM
--- NOTE | 2018-04-29 22:03 | Magnetic Resonance Report ---
MR angio neck wo/w con CLINICAL HISTORY: 63 years-old Male presenting with left arm weakness and tingling, concern for strok e, abnormality seen on CT, MRI for further assessment. TECHNIQUE: MR angiography of the neck was performed before and after the administration of intravenou s contrast. 3-D volumetric and/or maximum intensity projection (MIP) images were subsequently reconst ructed for review. IV contrast: 9 mL of Gadavist. Stenosis measurements were based on NASCET-like cri teria (distal lumen diameter as the denominator for stenosis measurement). COMPARISON: None. FINDINGS: Localizer images: Unremarkable. Aortic arch: Atherosclerosis of the three-vessel aortic arch. Innominate artery: Patent. Right common carotid artery: Origin of the right common carotid artery poorly visualized, likely haseeb factual. The remainder of the right common carotid artery is widely patent. Right internal and external carotid arteries: Right carotid bifurcation patent. Right internal and ex ternal carotid arteries widely patent. Left common carotid artery: Patent. Left internal and external carotid arteries: Left carotid bifurcation patent. Left internal and exter nal carotid arteries widely patent. Left subclavian artery: Patent. Vertebral arteries: Right dominant vertebral artery. Origins and courses of the bilateral vertebral a rteries patent. Other: Limited intracranial evaluation within normal limits. Soft tissues of the neck normal allowing for the phase of contrast. IMPRESSION: 1. No dissection, significant stenosis, or focal vessel occlusion. Electronically signed by: Edwar Beckford M.D. 04/29/2018 10:02 PM
[2018-04-30] MEDS: SODIUM CHLORIDE 0.9% 1000ML 1,000 ML IV SCH (04:49)
[2018-04-30 06:04] LABS: Basophils # (auto) 0.04 K/uL (0-0.2); Basophils % (auto) 0.6 %; Eosinophils # (auto) 0.28 K/uL (0-0.5); Hematocrit (blood only) 42.2 % (42-52); Hemoglobin 14.2 g/dL (14.0-18.0); Immature Granulocytes # (auto) 0.02 K/uL (0.00-0.02); Immature Granulocytes % (auto) 0.3 %; Lymphocytes # (auto) 2.58 K/uL (1.2-3.4); Lymphocytes % (auto) 36.5 %; Mean Corpuscular Hgb Conc 33.6 g/dL (32-36); Mean Corpuscular Volume 90.8 fL (80-100); Mean Platelet Volume 10.6 fL (7.4-10.4); Monocytes # (auto) 0.61 K/uL (0.11-0.59); Monocytes % (auto) 8.6 %; Neutrophils # (auto) 3.53 K/uL (1.4-6.5); Platelet Count 210 K/uL (130-400); RDW Coefficient of Variation 13.3 % (11.5-14.5); RDW Standard Deviation 43.7 fL (36.4-46.3); Red Blood Count 4.65 M/uL (4.7-6.1); White Blood Count 7.06 K/uL (4.8-10.8)
[2018-04-30 06:42] LABS: Estimated Average Glucose 126 mg/dl
[2018-04-30 06:44] LABS: BUN Creatinine Ratio 18.9 (10-20); Calcium 8.1 mg/dl (8.5-10.1); Est GFR (African American) 81.7; Est GFR (Non-African American) 70.5; Potassium 3.6 mmol/L (3.5-5.1)
[2018-04-30] MEDS: ATORVASTATIN 40 MG TAB PO SCH (07:57)
[2018-04-30] MEDS: CLOPIDOGREL BISULFATE 75 MG TAB PO SCH (07:58)
[2018-04-30] MEDS ORDERED: ASPIRIN 81 MG ECTAB PO SCH (09:00)
[2018-04-30 11:07] VITALS: O2SAT 96
--- NOTE | 2018-04-30 14:25 | Neurology Progress Note ---
Date of Service April 30, 2018 Assessment & Plan (1) Numbness and tingling of right side of face: 1. MRI with and without brain - no acute findings 2. CTA head and neck - no vascular abnormalities or acute findings 3. TTE- EF 65-70% no ASD 4. started aspirin 81 mg and plavix 75 mg will continue for 21 days and then stop aspirin and continue plavix for a lifetime 5. optimize HTN, HLD LDL <70 6. PT/OT speech -for any discharge needs- does not appear to be any needs 7. needs out patient ZIO 8. needs increased statin to optimize cholestrol levels. 9. ok to discharge from neurology stand point follow up with neurology 4-6 weeks after discharge Mervat Hill PAC schedule (2) LUE numbness: same as above Supervising Physician Co-Signing Physician Notes I have seen and discussed above patient with Dr Mervat Gil, neurology PT seen, marquez as above. Rec antiplt tx, better control of lipids, ongoing antiplt tx, rn cardiac rehab as outpt SHAWNEE Gil MD Zeynep Motta is a 63 year old right handed male with a PMH uncontrolled HTN, pinched nerve in neck. He presented to ED after a 15 minute episode of facial numbness and dysmetric use of left arm and hand . He notes that the symptom onset when he was shoveling snow. He lost control of his left arm, left sided facial tingling, and lightheadedness. He states that he then took his blood pressure and it was 156/99. There was no weakness in his arms or legs he just couldn't get it to move the way he wanted it to move He had a similar episode about a year ago he had an MRI of his brain and neck and was told that he did not have a stroke and had cervical stenosis. He quit smoking about 1 month ago was a ppd smoker, drinks 2 beers daily, and about a pot of coffee per day, no other drugs. Today he states he has no recurrent symptoms and is anxious to get home. Physical therapy had him up walking with no difficulty. denies CP, SOB, abdominal pain, currently one sided weakness, numbness tingling, N, V, swallow issues, no further dysmetric of left arm. Physical Exam Vital Signs (Past 24 Hours): Last Vital Signs Temp 36.8 C 04/30/18 11:07 Pulse 68 03/05/19 11:07 Resp 18 04/30/18 11:07 BP 142/91 H 04/30/18 11:07 Pulse Ox 96 04/30/18 11:07 Gen: alert NAD PERRL/EOM CV RRR lungs course breath sounds smile eye brow raise symmetric speech with no aphasia but some hesitation of speech strength biceps triceps hand warp knitter helper 5/5 bilaterally hip flex plantar flex ext 5/5 bilaterally no pronator drift, rapid hand movement bilaterally intact finger to nose intact no bipass heel to green bilaterally intact Results & Data Laboratory Results Abnormal lab results 04/30/18 04/30/18 04/30/18 Range/Units 05:38 05:38 05:38 RBC 4.65 L (4.7-6.1) M/uL MPV 10.6 H (7.4-10.4) fL [place] # (Auto) 0.61 H (0.11-0.59) K/uL BUN 21 H (7-18) mg/dl Glucose 116 H (70-99) mg/dl Hemoglobin A1c 6.0 H (4.5-5.6) % Calcium 8.1 L (8.5-10.1) mg/dl Triglycerides 190 H (0-150) mg/dl Cholesterol 224 H (0-200) mg/dl Diagnostic Findings TTE- 65-70% EF, no ASD MRI brain - Chronic appearing limited cortical infarct involving the post central gyrus of the right parietal lobe. It is uncertain if this relates to the patient's symptomatology. No acute infarct or convincing evidence of acute intracranial pathology. No abnormal parenchymal enhancement. MRA head-No significant stenosis, aneurysm, or focal vessel occlusion. MRA neck-No dissection, significant stenosis, or focal vessel occlusion.
[2018-04-30 15:58] VITALS: BP 136/84; TEMP 98.1
--- NOTE | 2018-04-30 16:28 | History & Physical Report ---
Date of Service April 30, 2018 Assessment & Plan (1) Stroke-like symptom: Neurologic symptoms were resolved TPA not indicated brain MRI And head MRA neck MRA ordered Plavix added to aspirin Lipitor started Neurology consulted Stroke protocol ordered (2) HTN (hypertension): Stable Held amlodipine and HCTZ to promote cerebral perfusion History of Present Illness Primary Care Provider: Pooja Henderson Patient is a 63-year-old male with history of hypertension presenting with strokelike symptoms. Patient after shoveling snow and fixing his car developed left-sided arm wea kness and tingling. This lasted for about 15 minutes with no other associated symptoms Patient denies headache, chest pain, nausea, dizziness. He then presents to the ER for evaluation management At the ER the patient's CT head was negative for any acute process. Hospitalist consulted for admission On my exam the patient denies any neurologic symptoms or recurrence of the previous neurologic symptoms. He also was denying any active symptoms during my exam. Allergies Allergy/AdvReac Type Severity Reaction Status Date / Time Sulfa (Sulfonamide Allergy Severe unkown Verified 03/21/18 22:20 Antibiotics) from childhood Home Medications Home Medications Medication Instructions Recorded Confirmed Type amlodipine 5 mg PO QPM 03/14/18 04/29/18 History aspirin [Aspirin Low Dose] 81 mg PO QAM 03/14/18 04/29/18 History hydrochlorothiazide 12.5 mg PO QAM 03/21/18 04/29/18 History meclizine 25 mg PO DAILY PRN 04/29/18 04/29/18 History atorvastatin 40 mg PO QAM 30 Days #30 tab 04/30/18 Rx clopidogrel 75 mg PO QAM 30 Days #30 tab 04/30/18 Rx Past Med/Surg History Medical History Pneumonia (Resolved) Hypertension (Inactive) Pinched nerve Family History Other Family history non-contributory Social History Preferred Language: Swazi Beliefs That Will Affect Care: None Current Living Situation: Alone Other Information That Helps Us Care for You: No Feels Safe at Home: Yes Safety Concerns: Feels Safe At This Time Smoking Status: Former smoker Hx Alcohol Use: Yes Hx Substance Use: No Physical Exam Vital Signs (Past 24 Hours): Last Vital Signs Temp 36.7 C 04/30/18 15:56 Pulse 60 04/30/18 15:56 Resp 19 04/30/18 15:56 BP 136/84 04/30/18 15:56 Pulse Ox 96 04/30/18 15:56 Physical Exam: General- oriented x 3, not in distress, speaks in sentences with no effort or accessory muscle use Head- atraumatic Eyes- PERRL, EOMI, anicteric ENT- oropharynx clear Neck- supple, no JVD, no adenopathy, no thyromegaly; carotids +2/2, no bruits appreciated Lungs- clear to auscultation bilaterally, no rales/wheezes Heart- normal rate, regular rhythm; no murmur, no gallop, no rub appreciated Abdomen- normal bowel sounds, nondistended, soft, nontender, no masses or hepatosplenomegaly Extremities- no pretibial edema, no calf tenderness; peripheral pulses intact Neuro- alert, oriented x 3; CN 2-12 grossly intact; motor 5/5 bilaterally;sensation 100% on all extremities; no other gross focal neurologic deficits Skin- warm & dry Results & Data Laboratory Results All noted and reviewed Code Status & VTE Plan Code Status Full code
[2018-04-30] MEDS ORDERED: AMLODIPINE BESYLATE 5 MG TAB PO ONE (16:34)
[2018-04-30] MEDS ORDERED: STROKE PATIENT DISCHARGE STA (16:55)
[2018-04-30 17:06] VITALS: PULSE 69
--- NOTE | 2018-04-30 17:35 | Pharmacy Report ---
Pharmacist Stroke Counseling - Date of Service April 30, 2018 - Scope: Pharmacy has been consulted to provide medication discharge counseling for this patient admitted with CVA as per the Pharmacist Discharge Counseling for Stroke Patients Protocol. - Medications on Discharge: Home Medications Medication Instructions Recorded Confirmed amlodipine 5 mg PO QPM 03/14/18 04/29/18 aspirin [Aspirin Low Dose] 81 mg PO QAM 03/14/18 04/29/18 hydrochlorothiazide 12.5 mg PO QAM 03/21/18 04/29/18 meclizine 25 mg PO DAILY PRN 04/29/18 04/29/18 New Rx's Medication Instructions Recorded atorvastatin 40 mg PO QAM 30 Days #30 tab 04/30/18 clopidogrel 75 mg PO QAM 30 Days #30 tab 04/30/18 - Action: The above medications, specifically ones for stroke treatment/prophylaxis, have been reviewed in detail with the patient and/or patient electroplating sales representative(s) prior to discharge. This includes indication, common adverse reactions, drug interactions, and medication administration. Medication counseling has been employed using the teach-back method to ensure understanding. - Outcome: The patient and/or patient electroplating sales representative(s) have demonstrated understanding of the medications. Please note, they are aware that the pharmacist will call them within 72 hours post-discharge to confirm that the appropriate medications are being taken and answer any further medication related questions the patient might have at that time. Contact information Individual to be contacted: Kalia Acosta Relationship to patient (if applicable): self Phone number: [phone] Best time to call: between 8am-12pm Additional comments: Please leave a message and Mr Acosta will return a call if needed. Thank you for allowing pharmacy to be involved in the care of this patient. Please call [phone] or [phone] with any additional questions
--- NOTE | 2018-05-01 09:04 | Hospitalist Progress Note ---
Date of Service May 01, 2018 Delayed entry date of service symptoms as noted above Assessment & Plan (1) Stroke-like symptom: Neurologic symptoms were resolved TPA not indicated brain MRI And head MRA neck MRA ordered Plavix added to aspirin Lipitor started Neurology consulted agree with management Recommend dual antiplatelet agent Recommend Zio patch monitor as an outpatient to rule out arrhythmia (2) HTN (hypertension): Stable Resume amlodipine and Prediabetes A1c 6.0 Follow-up as an outpatient Disposition Follow-up with PCP in 3-5 days Follow-up with neurologist in 2 weeks. (3) Prediabetes: Subjective Follow-up for strokelike symptoms Seen resting in bed, comfortable, Not in distress States he feels fine overall No recurrence of stroke like symptoms or any other neurologic symptoms Denies headache dizziness, chest pain, palpitations No other symptoms Physical Exam Vital Signs (Past 24 Hours): Last Vital Signs Temp 36.7 C 04/30/18 17:05 Pulse 69 04/30/18 17:05 Resp 19 04/30/18 17:05 BP 136/84 04/30/18 17:05 Pulse Ox 96 04/30/18 17:05 Physical Exam: General- oriented x 3, not in distress, speaks in sentences with no effort or accessory muscle use Eyes- anicteric Neck- no JVD Lungs- clear breath sounds bilaterally Heart- normal rate, regular rhythm; no murmurs Abdomen- normal bowel sounds, nondistended, soft, nontender Extremities- no pretibial edema, no calf tenderness Neuro- alert, oriented x 3; cranial nerves II 12 grossly intact, motor exam 5/5 in all extremities Sensation intact all extremities No other gross focal neurologic deficits Skin- warm & dry Results & Data Laboratory Results All noted and reviewed
--- NOTE | 2018-05-01 09:04 | Discharge Summary ---
Date of Service May 01, 2018 delayed entry date of service 04/30/18 Admission HPI Per Admitting Provider Patient is a 63-year-old male with history of hypertension presenting with strokelike symptoms. Patient after shoveling snow and fixing his car developed left-sided arm weakness and tingling. This lasted for about 15 minutes with no other associated symptoms Patient denies headache, chest pain, nausea, dizziness. He then presents to the ER for evaluation management At the ER the patient's CT head was negative for any acute process. Hospitalist consulted for admission On my exam the patient denies any neurologic symptoms or recurrence of the previous neurologic symptoms. He also was denying any active symptoms during my exam. Admission Exam Per Admitting Provider Vital Signs (Past 24 Hours): Last Vital Signs Temp 36.7 C 04/30/18 15:56 Pulse 60 04/30/18 15:56 Resp 19 04/30/18 15:56 BP 136/84 04/30/18 15:56 Pulse Ox 96 04/30/18 15:56 Physical Exam: General- oriented x 3, not in distress, speaks in sentences with no effort or accessory muscle use Head- atraumatic Eyes- PERRL, EOMI, anicteric ENT- oropharynx clear Neck- supple, no JVD, no adenopathy, no thyromegaly; carotids +2/2, no bruits appreciated Lungs- clear to auscultation bilaterally, no rales/wheezes Heart- normal rate, regular rhythm; no murmur, no gallop, no rub appreciated Abdomen- normal bowel sounds, nondistended, soft, nontender, no masses or hepato splenomegaly Extremities- no pretibial edema, no calf tenderness; peripheral pulses intact Neuro- alert, oriented x 3; CN 2-12 grossly intact; motor 5/5 bilaterally;sensation 100% on all extremities; no other gross focal neurologic deficits Skin- warm & dry Principal Diagnosis TRANSIENT ISCHEMIC ATTACK Discharge Exam Vital Signs (Past 24 Hours): Last Vital Signs Temp 36.7 C 04/30/18 17:05 Pulse 69 04/30/18 17:05 Resp 19 04/30/18 17:05 BP 136/84 04/30/18 17:05 Pulse Ox 96 04/30/18 17:05 Physical Exam: General- oriented x 3, not in distress, speaks in sentences with no effort or accessory muscle use Eyes- anicteric Neck- no JVD Lungs- clear breath sounds bilaterally Heart- normal rate, regular rhythm; no murmurs Abdomen- normal bowel sounds, nondistended, soft, nontender Extremities- no pretibial edema, no calf tenderness Neuro- alert, oriented x 3; cranial nerves II 12 grossly intact, motor exam 5/5 in all extremities Sensation intact all extremities No other gross focal neurologic deficits Skin- warm & dry Discharge Data Allergies Allergy/AdvReac Type Severity Reaction Status Date / Time Sulfa (Sulfonamide Allergy Severe unkown Verified 03/21/18 22:20 Antibiotics) from childhood Consultations 04/29/18 12:27 ED Decision to Admit Stat 04/29/18 14:45 Consult Case Management - Discharge Planning Routine Consult Neurology Routine Consult Neurology Routine Ordered Studies 04/29/18 11:07 CT head/brain wo con Stat 04/29/18 14:45 MR angio head wo con Routine MR angio neck wo/w con Routine MR brain wo/w con Routine [place], [place] [phone] Magnetic Resonance Report Patient: LUNA HOWARD Date: 04/29/18 MR#: [id number]. Acct ID:[id number]: Date: 1955[facility] Zip: [place] [address] Age: 63Location: 2S Sex: M Room/Bed: [facility] Att Phy: Emory oRsenberg MDDiagnosis: CVA Swati Phy: Pooja Henderson M.D.Service Date: 04/29/18 Fam Phy: Interpreting Phy: Edwar Beckford MD Admit Phy: Emory Rosenberg MD Ordering Phy: Emory Rosenberg MD cc: ~ MR brain wo/w con CLINICAL HISTORY: 63 years-old Male presenting with cva, left arm weakness and tingling in the face for 15 minutes this morning while shoveling snow, abnormality seen on CT, MRI for further characterization. TECHNIQUE: Multisequence, multiplanar MR imaging of the brain was performed before and after the administration of intravenous contrast. IV contrast: 9 mL of Gadavist. COMPARISON: Noncontrast CT head performed earlier today. FINDINGS: Localizer images: Unremarkable. Ventricles and sulci normal in size. Few scattered punctate foci of T2/FLAIR hyperintensity in the periventricular and subcortical white matter either age- related change or chronic small vessel ischemic change. Limited focus of encephalomalacia in the post central gyrus of the right parietal lobe. No associated diffusion abnormality. This is consistent with an old Limited cortical infarct. No abnormal parenchymal enhancement. No mass effect or midline shift. No restricted diffusion to suggest acute ischemia. No hemorrhage. No extra-axial fluid collection. T2 skull base flow voids preserved. Bone marrow signal intensity within the calvarium within normal limits. IMPRESSION: 1. Chronic appearing limited cortical infarct involving the post central gyrus of the right parietal lobe. It is uncertain if this relates to the patient's symptomatology. No acute infarct or convincing evidence of acute intracranial pathology. No abnormal parenchymal enhancement. MR angio head wo con CLINICAL HISTORY: 63 years-old Male presenting with left arm weakness and tingling, concern for stroke. TECHNIQUE: MR angiography of the head was performed without the use of intravenous contrast using 3-D [id number] technique. 3-D volumetric and/or maximum intensity projection (MIP) images were subsequently reconstructed for review. IV contrast: None. COMPARISON: Noncontrast CT head performed earlier the same day and MR brain from today. FINDINGS: Localizer images: Unremarkable. Anterior circulation: Intracranial portions of the internal carotid arteries patent to the level of the termini. Anterior cerebral arteries patent. Middle cerebral arteries patent. Anterior communicating artery patent. Posterior circulation: Codominant vertebral arteries. Intradural portions of the vertebral arteries patent. Posterior inferior cerebellar arteries patent. Basilar artery patent. Anterior inferior cerebellar arteries poorly visualized. Superior cerebellar arteries patent. Posterior cerebral arteries patent.Right posterior communicating artery patent. Left P-comm hypoplastic or aplastic. IMPRESSION: 1. No significant stenosis, aneurysm, or focal vessel occlusion. MR angio neck wo/w con CLINICAL HISTORY: 63 years-old Male presenting with left arm weakness and tingling, concern for stroke, abnormality seen on CT, MRI for further assessment. TECHNIQUE: MR angiography of the neck was performed before and after the administration of intravenous contrast. 3-D volumetric and/or maximum intensity projection (MIP) images were subsequently reconstructed for review. IV contrast: 9 mL of Gadavist. Stenosis measurements were based on NASCET-like criteria (distal lumen diameter as the denominator for stenosis measurement). COMPARISON: None. FINDINGS: Localizer images: Unremarkable. Aortic arch: Atherosclerosis of the three-vessel aortic arch. Innominate artery: Patent. Right common carotid artery: Origin of the right common carotid artery poorly visualized, likely artifactual. The remainder of the right common carotid artery is widely patent. Right internal and external carotid arteries: Right carotid bifurcation patent. Right internal and external carotid arteries widely patent. Left common carotid artery: Patent. Left internal and external carotid arteries: Left carotid bifurcation patent. Left internal and external carotid arteries widely patent. Left subclavian artery: Patent. Vertebral arteries: Right dominant vertebral artery. Origins and courses of the bilateral vertebral arteries patent. Other: Limited intracranial evaluation within normal limits. Soft tissues of the neck normal allowing for the phase of contrast. IMPRESSION: 1. No dissection, significant stenosis, or focal vessel occlusion. Hospital Course (1) Stroke-like symptom: (1) Stroke-like symptom: Neurologic symptoms were resolved TPA not indicated Brain MRI: Chronic appearing limited cortical infarct involving the post central gyrus of the right parietal lobe. It is uncertain if this relates to the patient's symptomatology. No acute infarct or convincing evidence of acute intracranial pathology. No abnormal parenchymal enhancement. Head MRA neck MRA: no signifccant stenosis Echo: preserved EF, grade 1 diastolic dysfunction, no interatrial shunt Neurologist Dr. Gil consulted Plavix added to aspirin: aspirin 81 mg and plavix 75 mg will continue for 21 days and then stop aspirin and continue plavix for a lifetime Lipitor 40mg po started Recommend Zio patch monitor as an outpatient to rule out arrhythmia ff up with Neurologist in 2 weeks (2) HTN (hypertension): Stable Resume amlodipine and HCTZ (3) Prediabetes A1c 6.0 Follow-up as an outpatient Total Time Total Time Spent Total Time Spent (In Minutes): 40 minutes Discharge Plan Discharge Items Patient Disposition: Home - Self-Care Reason For Visit: CVA Discharge Diagnosis: POSSIBLE TRANSIENT ISCHEMIC ATTACK (MINISTROKE) Discharge Goals: Diagnostic testing and Therapeutic intervention Activity: As commented below Activity Comment: NO HEAVY EXERTION UNTIL RE-EVALUATED BY PRIMARY CARE PHYSICIAN Lifting: Wait until after follow-up appointment Exercise/Sports: Wait until after follow-up appointment Driving/Machine Use Comment: NO DRIVING UNTIL RE-EVALUATED BY PRIMARY CARE PHYSICIAN Non-emergency contact: Primary Care Provider Call non-emergency contact if: you have any medication questions and you have a fever Follow-up/Referrals: Pooja Henderson M.D. [Primary Care Provider] - Diet: Heart Healthy [facility] Provider Instructions: PLEASE FOLLOW UP WITH PRIMARY CARE PHYSICIAN IN 3-5 DAYS. THE CLINIC WILL BE CALLING YOU SOON FOR THE APPOINTMENT. PLEASE REVIEW YOUR NEW MEDICATION LIST AND FOLLOW INSTRUCTIONS CAREFULLY. ALWAYS TAKE ASPIRIN WITH FULL STOMACH. CALL YOUR DOCTOR IMMEDIATELY IF YOU ARE HAVING MUSCLE WEAKNESS/CRAMPS WHICH MAY BE AN ADVERSE AFFECT OF YOUR NEW MEDICATION- LIPITOR. YOU WILL NEED A PIPE STEM SAWYER AN OUTPATIENT. THE PRIMARY CARE PHYSICIAN WILL ARRANGE THIS. Who to Call and When: Medical Emergencies: Call 911 immediately if you experience any of the following warning signs and symptoms of Stroke: Sudden numbness or weakness of the face, arm or leg, especially on one side of the body Sudden confusion, trouble speaking or understanding Sudden trouble seeing in one or both eyes Sudden trouble walking, dizziness, loss of balance or coordination Sudden severe headache with no cause Do not delay calling 911 if you experience any warning signs or symptoms of a stroke. Delay in seeking medical attention may affect what treatments can be given to you. Risk Factors for Stroke: You can reduce your chances of stroke by working with your medical provider to adopt a healthy lifestyle. Some specific ways to lower your chance of stroke are: If you are a smoker, now is the time to stop smoking cigarettes If you are diabetic, improve the control of your blood sugars Avoid excessive amounts of alcohol Control high blood pressure Lose weight if you are overweight Be sure to lead an active lifestyle Eat a healthy diet low in salt, cholesterol and fat You should know about other risk factors for stroke that you are unable to control. These include: Age 55 years or older Male gender Certain racial groups: , or / Family History of Stroke, Mini stroke or Heart Attack Sickle Cell Disease It is important for you to keep your follow up appointments with your medical provider. Prescriptions: New atorvastatin 40 mg Tablet 40 mg PO QAM 30 Days Qty: 30 RF: 2 clopidogrel 75 mg Tablet 75 mg PO QAM 30 Days Qty: 30 RF: 2 Continued meclizine 25 mg tablet 25 mg PO DAILY PRN (Reason: Dizziness) RF: 0 amlodipine 5 mg tablet 5 mg PO QPM RF: 0 aspirin [Aspirin Low Dose] 81 mg Tablet,Delayed Release (Dr/Ec) 81 mg PO QAM RF: 0 hydrochlorothiazide 12.5 mg capsule 12.5 mg PO QAM RF: 0 Stand-Alone Forms: Medications to Prevent Stroke, [facility]/Other Patient Handouts: Prediabetes, Stroke Heart Disease, Stroke Sx, TIA, Stroke Taking Meds, Eat Healthy, Stroke Risk Factors, Diabetes Meal Planning Discharge Orders: Discharge Order (Routine); Ordered 04/30/18 Ordered By: Emory Rosenberg Admission Data Admit Date/Time: 04/29/18 13:17 Attending Provider: Emory Rosenberg Admit Provider: Emory Rosenberg Primary Care Provider: Pooja Henderson Other Providers: Mervat Gil Service: Telemetry Other Interventions: Discharge Summary Assessment (RN) Last Done: 04/30/18 17:05 DC Date/Time DO NOT enter until pt leaves facility: 04/30/18 17:54
--- NOTE | 2018-05-02 08:21 | Coding Query ---
CODING QUERY To promote full compliance with coding requirements relating to patient care, provider participation is requested in all cases of him coder uncertainty. Please assist us with the question(s) below: Coding Question(s): Dr. Rosenberg, Please clarify the principal diagnosis for this encounter: ( ) TIA ( ) Stroke-like symptoms ( ) Other, please explain ( ) Unable to determine Physician's Response(s): possible TIA Thank you for your time, DOMINIK Ortiz, [facility]
--- NOTE | 2018-05-02 10:30 | Pharmacy Report ---
Pharmacist Post D/C Phone Note - Phone Note: Date of phone call: May 02, 2018. Individual with whom pharmacist spoke to: LUNA Smith LEE The following questions were reviewed during the phone call with responses listed below each: Can you tell me the medications that you are currently taking as well as when and how you take each medication? -See Table Below When have you missed any doses of your medications? - none reported What side effects are you having from your medications, specifically, the new medications you were started on? - feeling good since discharge What questions do you have about your medications? - did have question in regards to continuation of both Aspirin and plavix therapy and duration. Was recommended in MD note to be on both therapy for another 21 days and then stop aspirin and continue plavix for lifetime so relayed this information to patient since not in discharge packet. Patient was also stating that the doctor at hospital had wanted him to get some labs done but wasn't sure what labs. Unclear from provider notes on discharge what labs were ordered. Spoke with Dr. Rosenberg in regards to conversation with patient this morning. He confirmed the duration for Asp/Plavix as above. Stated that he would double check to determine if any labs needed to be done and will call the patient if there is anything. Called patient back this afternoon to relay message. Patient aware to continue with plavix lifelong. What problems are you having obtaining your medications? -none reported When is your next appointment with your primary care doctor? - Appt was today with PCP - patient did bring updated medication list with him to todays visit. Additional comments: - Patient seemed knowledgeable about medications. No concerns on interview. As per the Pharmacist Discharge Counseling for Stroke Patients Protocol, this phone call has been completed within 72 hours of discharge. Thank you for allowing us to be involved in the care of this patient. - Home Medications: Home Medications Medication Instructions Recorded Confirmed amlodipine 5 mg PO QPM 03/14/18 04/29/18 aspirin [Aspirin Low Dose] 81 mg PO QAM 03/14/18 04/29/18 hydrochlorothiazide 12.5 mg PO QAM 03/21/18 04/29/18 meclizine 25 mg PO DAILY PRN 04/29/18 04/29/18 New Rx's Medication Instructions Recorded atorvastatin 40 mg PO QAM 30 Days #30 tab 04/30/18 clopidogrel 75 mg PO QAM 30 Days #30 tab 04/30/18
== END 2018-04-30 17:54 | disposition home or self-care (01) | DRG 69 ==
LOC: ED 10:08 → 2S 13:17
DX: R73.03 Prediabetes; G45.9 Transient cerebral ischemic attack, unspecified; Z87.891 Personal history of nicotine dependence; Z79.899 Other long term (current) drug therapy; I10 Essential (primary) hypertension; Z88.2 Allergy status to sulfonamides; Z79.82 Long term (current) use of aspirin; G58.9 Mononeuropathy, unspecified